=== PATIENT | male | born 1950 | race Caucasian/White ===

== ENCOUNTER 2020-09-15 00:19 | Emergency (ER) | payer MEDICARE, OTHER ==
[~2020-09-15] VITALS: Ht 180.3 cm; Wt 81.6 kg
--- NOTE | 2020-09-15 00:30 | NUR ---
PATIENT BIBRA 99 FOR C/O WEAKNESS AND DIZZINESS FOR THE PAST 7 HOURS. PATIENT STATED HE NOTICED BLACK TARRY STOOL FOR PAST 2-3 WEEKS. PATIENT IS A/O X 4, RR EVEN AND UNLABORED NO SIGNS OF SOB NOTED. PATIENT CONNCETED TO [employer] MONITOR AND POX.
[2020-09-15 00:51] LABS: MEAN CORPUSCULAR VOLUME 81 fL (80-96)
[2020-09-15 00:55] LABS: BASOPHILS # (AUTO) 0.1 K/uL (0.0-0.2); BASOPHILS % (AUTO) 0.5 % (0.0-2.0); EOSINOPHILS % (AUTO) 1.9 % (0.0-6.0); HEMATOCRIT 21 % (39-51); LYMPHOCYTES # (AUTO) 1.8 K/uL (0.8-4.8); LYMPHOCYTES % (AUTO) 14.1 % (20.0-44.0); MEAN CORPUSCULAR HGB CONC 32 g/dl (31.0-36.0); MONOCYTES # (AUTO) 0.9 K/uL (0.1-1.30); MONOCYTES % (AUTO) 6.7 % (2.0-12.0); NEUTROPHILS # (AUTO) 9.8 K/uL (1.8-8.9); NEUTROPHILS % (AUTO) 76.8 % (43.0-81.0); PLATELET COUNT (AUTO) 258 K/uL (150-450); RED BLOOD CELL COUNT(AUTO) 2.57 MIL/uL (4.5-6.0); WHITE BLOOD COUNT (AUTO) 12.7 K/uL (4.3-11.0)
[2020-09-15 01:00] LABS: HEMOGLOBIN 6.6 g/dL (13.5-17.5)
[2020-09-15] MEDS ORDERED: IV NS 0.9% 1,000 ML BAG IV ONE (01:00)
[2020-09-15 01:05] LABS: CALCIUM, SERUM 10.1 mg/dL (8.5-10.1); CARBON DIOXIDE 25 mmol/L (21-32); CHLORIDE 104 mmol/L (98-107); CREATININE 1.5 mg/dL (0.6-1.3); GLUCOSE 193 mg/dL (74-106); POTASSIUM 4.7 mmol/L (3.5-5.1); SODIUM SERUM 141 mmol/L (136-145); UREA NITROGEN, BLOOD 77 mg/dL (7-18)
[2020-09-15 01:06] LABS: OCCULT BLOOD STOOL POSITIVE (NEGATIVE)
[2020-09-15 01:11] LABS: ALANINE AMINOTRANSFERASE 16 U/L (12-78); ALBUMIN 2.8 g/dL (3.4-5.0); ALKALINE PHOSPHATASE 45 U/L (46-116); ASPARTATE AMINOTRANSFERASE 9 U/L (15-37); BILIRUBIN,TOTAL 0.1 mg/dL (0.2-1.0); LIPASE 322 U/L (73-393); TOTAL PROTEIN, SERUM 5.7 g/dL (6.4-8.2)
[2020-09-15 01:26] LABS: BAND % (MANUAL) 3 % (0.0-5.0); LYMPHOCYTES % (MANUAL) 9 % (16-48); MONOCYTES % (MANUAL) 4 % (0-11.0); NEUTROPHILS % (MANUAL) 83 (42-76)
[2020-09-15 01:27] LABS: EOSINOPHILS % (MANUAL) 1 % (0-4)
--- NOTE | 2020-09-15 01:48 | NUR ---
[facility] CALLED FOR [facility]. AWAITING CALL BACK.
--- NOTE | 2020-09-15 01:59 | NUR ---
PATIENT CONSENT SIGNED FOR BLOOD TRANSFUSION
--- NOTE | 2020-09-15 02:26 | NUR ---
CH[facility] SCH[facility]ID[facility]ARD[facility].
--- NOTE | 2020-09-15 02:35 | NUR ---
BLOOD TRANSFUSION STARTED BP' 114/68 HR 127 O2: 100 TEMP 98.1 RR 20
--- NOTE | 2020-09-15 03:36 | NUR ---
CHAVA SCHMIDT TALKING TO DR. W[place] FROM [facility].
--- NOTE | 2020-09-15 04:26 | NUR ---
CALLED [facility]. [facility] IS AWAITING BED PLACEMENT AT [place] AND WILL SET UP TRANSFER AFTER THAT. WILL CALL BACK FOR TRANSFER INFO.
--- NOTE | 2020-09-15 05:06 | NUR ---
PT GOING TO [place] ROOM 5104 NUMBER FOR REPORT IS [id number] ACCEPTING MD CANTU [facility] AT 0630. WILL CALL BACK FOR VITALS IN 1 HOUR.
--- NOTE | 2020-09-15 05:10 | NUR ---
S/P TRANSFUSION, PATIENT IN BED RESTING, NO REACTIONS NOTED, VSS. PATIENT CONNECTED TO MONITOR.
--- NOTE | 2020-09-15 05:24 | NUR ---
[id number] IS THE NUMBER FOR [employer] DR[facility] AT [facility] PER [facility]. TRIED CALLING GIVEN NUMBER FOR REPORT TWICE WITH NO ANSWER.
--- NOTE | 2020-09-15 05:38 | NUR ---
MULTIPLE ATTEMPTS TO CALL [facility] TO CONNECT NURSE BÁRBARA TO GIVE REPORT FOR PT. NO ANSWER. SEVERAL CALLS BETWEEN [facility] LED TO THE CONCLUSION TO AWAIT A PHONE CALL BACK FROM [facility] WITH BETTER INFORMATION.
--- NOTE | 2020-09-15 05:47 | NUR ---
CHARGE NURSE BRENNA INFORMED TO CALL BACK BETWEEN CHANGE OF SHIFT FOR REPORT.
--- NOTE | 2020-09-15 06:55 | NUR ---
REPORT GIVEN TO [facility]. PATIENT TRANSFERRED IN STABLE CONDITION.
[2020-09-15 07:00] VITALS: BP 137/75
== END 2020-09-15 06:55 | disposition short-term general hospital (02) ==
LOC: ER 00:24
DX: K92.2 Gastrointestinal hemorrhage, unspecified (principal); D64.9 Anemia, unspecified; R00.0 Tachycardia, unspecified; N28.9 Disorder of kidney and ureter, unspecified; Z88.0 Allergy status to penicillin; E78.5 Hyperlipidemia, unspecified; E11.9 Type 2 diabetes mellitus without complications; Z20.822 Contact with and (suspected) exposure to COVID-19
CPT/HCPCS: 36415; 36430; 80048; 80076; 82272; 83690; 84484; 85007; 85025; 85730; 86850; 86923; 87426; 93005; 96360; 99291; C9803; P9016